=== PATIENT | female | born 1985 | race Caucasian/White ===

== ENCOUNTER 2017-09-25 09:20 | Emergency (ER) | END 2017-09-25 11:29 | disposition home or self-care (01) ==

== ENCOUNTER 2017-10-04 12:34 | Emergency (ER) | END 2017-10-04 15:13 | disposition home or self-care (01) ==

== ENCOUNTER 2018-06-09 10:36 | Emergency (ER) | END 2018-06-09 14:32 | disposition home or self-care (01) ==

== ENCOUNTER 2018-07-13 15:21 | Emergency (ER) | END 2018-07-13 16:34 | disposition home or self-care (01) ==

== ENCOUNTER 2019-02-02 15:18 | Emergency (ER) | payer SELFPAY ==
[~2019-02-02] VITALS: Ht 162.6 cm; Wt 68.8 kg
[~2019-02-02 15:18] MED LIST: AMOX500C2 PO; AZIT250T PO; BENZ-6 PO; BENZ1LOZ52 MM; D-ME473S18 PO; FIORICET PO; GUAI-227 PO; HYDR-4011 PO; IBUP-1542 PO; PRED20TA PO
[2019-02-02 15:21] VITALS: BP 136/75; PULSE 85; RESP 18; Ht 162.6 cm; Wt 68.8 kg
[2019-02-02] MEDS ORDERED: ACET325T33 PO (15:40)
[2019-02-02] MEDS ORDERED: BENZ1LOZ28 MM (15:42)
--- NOTE | 2019-02-02 15:46 | ERD ---
ER Documentation Chief Complaint Chief Complaint SORE THROAT HPI 33-year-old female presented to ER for sore throat. Patient was seen at another clinic yesterday is given a prescription for amoxicillin. Patient was diagnosed with strep throat. Patient is reporting ER because she complains that her throat still hurts. Patient states she is taking her antibiotic and that she just wants to see what else there can be done for the pain. Patient denies any allergies to medications. ROS All systems reviewed and are negative except as per history of present illness. Medications Home Meds Active Scripts Benzocaine/Menthol ([facility] SORE THROAT LOZENGE) 1 Each Lozenge, 1 EACH MM Q6 for 10 Days, LOZENGE Prov:YUE MUSE PA-C 02/02/19 Acetaminophen* (Tylenol*) 325 Mg Tablet, 2 TAB PO Q6 PRN for PAIN AND OR ELEVATED TEMP, #20 TAB Prov:YUE MUSE PA-C 02/02/19 Hydrocodone/Acetaminophen ([place] 5-325 Tablet) 1 Each Tablet, 1 TAB PO BID PRN for PAIN, #10 TAB Prov:YOMAIRA BURLESON MD 07/13/18 Prednisone* (Prednisone*) 20 Mg Tab, 40 MG PO DAILY for 5 Days, TAB Prov:YOMAIRA BURLESON MD 07/13/18 Amoxicillin* (Amoxicillin*) 500 Mg Cap, 500 MG PO Q8 for 7 Days, #21 CAP Prov:YOMAIRA BURLESON MD 07/13/18 Acetamin/Butalbital/Caffeine* (Fioricet*) [id number] Tab, 1 TAB PO Q6H PRN for PAIN, #15 TAB Prov:NICOLA MARQUEZ MD 06/09/18 Guaifenesin-Dextromethorphan* (Robafen* DM) 100MG/10MG/5ML Liquid, 5 ML PO Q6H PRN for COUGH for 5 Days, #120 ML Prov:YOMAIRA BURLESON MD 10/04/17 Prednisone* (Prednisone*) 20 Mg Tab, 40 MG PO DAILY for 4 Days, TAB Prov:YOMAIRA BURLESON MD 10/04/17 Azithromycin* (Zithromax*) 250 Mg Tablet, 250 MG PO .SAMSON DIRECTED, #6 TAB TAKE 500 MG (2 TABS) THE FIRST DAY THEN 250 MG (1 TAB) DAYS 2-5 Prov:YOMAIRA BURLESON MD 10/04/17 Benzocaine/Menthol* (Cepacol* Sore Throat Lozenges) 1 Each Lozenge, 1 EACH MM Q4H PRN for SORE THROAT, #14 LOZENGE Prov:STEVEN QURESHI-C 09/25/17 Ibuprofen* (Motrin*) 600 Mg Tab, 600 MG PO Q6, #30 TAB Prov:STEVEN QURESHI PA-C 09/25/17 Amoxicillin* (Amoxicillin*) 500 Mg Cap, 500 MG PO BID for 10 Days, CAP Prov:STEVEN QURESHI-C 09/25/17 Dextromethorphan Hb-Promethazine Hcl (Promethazine DM Syrup) 473 Ml Syrup, 5 ML PO Q6H PRN for COUGH, #4 OZ Prov:RM NEWMAN-C 07/29/16 Benzonatate* (Tessalon Perle*) 100 Mg Capsule, 100 MG PO Q8H PRN for COUGH, #18 CAP Prov:RM NEWMAN-C 07/29/16 Azithromycin* (Zithromax*) 250 Mg Tablet, 250 MG PO .TeraPACK DIRECTED, #6 TAB TAKE 500 MG (2 TABS) THE FIRST DAY THEN 250 MG (1 TAB) DAYS 2-5 Prov:PATYRM Black-C 07/29/16 Allergies Allergies: Coded Allergies: No Known Allergies (Verified Allergy, Mild, 02/02/19) PMhx/Soc Medical and Surgical Hx: pt denies Medical Hx History of Surgery: No Anesthesia Reaction: No Hx Neurological Disorder: No Hx Respiratory Disorders: No Hx Cardiac Disorders: No Hx Psychiatric Problems: No Hx Miscellaneous Medical Probl: No Hx Alcohol Use: No Hx Substance Use: No Hx Tobacco Use: No FmHx Family History: No diabetes, No coronary disease, No other Physical Exam Vitals Vital Signs Date Temp Pulse Resp B/P (MAP) Pulse Ox O2 O2 Flow FiO2 Time Delivery Rate 02/02/19 98.8 85 18 136/75 99 15:21 (95) Physical Exam Const: No acute distress Head: Atraumatic Eyes: Normal Conjunctiva ENT: Tonsils grade 3, erythematous, exudates present. Patient's airway is not obstructed, Neck: Full range of motion. No meningismus. Resp: Clear to auscultation bilaterally Cardio: Regular rate and rhythm, no murmurs Procedures/MDM Medical decision makin-year-old female presented to ER for sore throat. Patient was seen at another clinic yesterday and was diagnosed with strep throat and given a prescription for amoxicillin. Patient states she started amoxicillin yesterday and she still not feeling great. I explained to the patient that this is going to take time. The patient concerns because she is had strep throat multiple times in the last year. I am given the patient referral to ENT. Patient is in no acute respiratory distress, no signs of anaphylactic, patient is tolerating amoxicillin without issues. Physical exam noted tonsils enlarged, erythematous, exudates present. Patient is being sent home prescription for throat lozenges to help alleviate the discomfort. Patient was advised if symptoms worsen return to ER immediately. Low suspicion for pneumonia, meningitis, sinusitis, otitis externa, acute otitis media, epiglottitis or peritonsillar abscess, patient is in agreement the treatment plan and plans to follow-up with her primary care provider in 1 to 2 days regarding this visit. Patient understands if symptoms worsen she will return ER at any time. Patient no further questions upon discharge Prescription for home Cepacol throat lozenges Acetaminophen Discharge: At this time, patient is stable for discharge and outpatient management. I have instructed the patient to follow-up with his\her primary care physician in 1 to 2 days. I have discussed with the patient the possibility of needing to see a specialist for further work-up and imaging studies if symptoms persist. I have instructed the patient to promptly return to the ER for any new or worsening symptoms including increased pain, fever, nausea, vomiting, weakness or LOC. The patient and\or family expressed understanding of and agreement with this plan. All questions were answered. Home care instructions were provided. Disclaimer: Inadvertent spelling and grammatical errors are likely due to EHR\dictation software use and do not reflect on the overall quality of patient care. Also, please note that the electronic time recorded on the note does not necessarily reflect the actual time of the patient encounter. Departure Diagnosis: Primary Impression: Sore throat Condition: Stable Patient Instructions: When You Have a Sore Throat Referrals: ELVIA GAGE MD, VISHAL MD Additional Instructions: Follow-up with primary care provider within 1 to 2 days regarding this visit. If symptoms worsen return immediately. Continue your antibiotic as prescribed and fill medications. YUE MUSE PA-C Feb 02, 2019 15:45
== END 2019-02-02 15:53 | disposition home or self-care (01) ==
LOC: FTE 15:18
DX: J02.9 Acute pharyngitis, unspecified (principal)
CPT/HCPCS: 99283